=== PATIENT | male | born 1990 | race Caucasian/White ===

== ENCOUNTER 2023-01-30 08:57 | Outpatient (OUT) | payer OTHER, SELFPAY ==
--- NOTE | 2023-01-30 09:10 | US_ITS ---
The [place] [id number] Patient Name: ALLISON GA MRN: [id number] date: 1990 Sex: M Assigned Patient Location: US Current Patient Location: US Accession/Order Number: [id number] Exam Date: 01/30/2023 09:10 Report Date: 01/30/2023 13:52 At the request of: GUME SHEPPARD Procedure: US abdomen limited EXAM: US abdomen limited 01/30/2023 10:49 AM PDT, [id number] HISTORY: LEFT UPPER QUADRANT LUMP/PAIN. TECHNIQUE: Multiple longitudinal and transverse grayscale and color sonographic images of the left upper quadrant were acquired. COMPARISON: CT abdomen/pelvis 04/30/2021. FINDINGS: Targeted evaluation of the palpable lump demonstrates an ovoid, parallel, circumscribed mass in the subcutaneous fat of the left upper quadrant which is of similar echogenicity to the surrounding fat and measures 2.5 x 0.8 x 1.2 cm. No fluid collection. The left kidney measures 11 x 5.6 x 5.7 cm for a volume of 184 mL. No hydronephrosis, solid mass, or echogenic stones on the provided views. Renal vascularity is within normal limits. The spleen is within normal limits for size at 9.8 cm. 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 Electronically authenticated by: LITTLE MAYERS Date: 01/30/2023 13:52
[2023-01-30 10:31] LABS: Uric Acid 5.9 mg/dL (3.5-7.2)
[2023-01-30 10:32] LABS: C Reactive Protein <0.2 mg/dL (<=1.0)
[2023-01-31 09:07] LABS: Antistreptolysin O Ab 34.8 IU/mL (0.0-200.0); Rheumatoid Factor (RF) <10.0 IU/mL (<14.0)
== END 2023-01-30 08:58 | disposition home or self-care (01) ==
LOC: US 08:57
PROVIDERS: PCP Family Medicine; Visit Provider Nurse Practitioner Family
DX: R10.12 Left upper quadrant pain (principal); Z87.898 Personal history of other specified conditions
CPT/HCPCS: 36415; 76705; 84550; 86038; 86060; 86140; 86430; 86431

== ENCOUNTER 2023-10-26 11:15 | Outpatient (OUT) | payer OTHER, SELFPAY ==
--- NOTE | 2023-10-26 11:30 | XR_ITS ---
The [address] [address] Patient Name: ALLISON GA MRN: [facility]:[id number] date: 1990 Sex: M Assigned Patient Location: LAB Current Patient Location: Accession/Order Number: [id number] Exam Date: 10/26/2023 11:35 Report Date: 10/27/2023 06:27 At the request of: CASIE GARBER Procedure: XR thoracic spine 3V EXAMINATION: XR thoracic spine 3V HISTORY: Chest wall pain R07.89 COMPARISON: No relevant comparison available. FINDINGS: BONES: No significant spondylosis, scoliosis, fracture, or visible bony lesion. DISC SPACES: No significant disc height narrowing, subluxation, or endplate abnormality. PARASPINOUS: Negative. No paraspinous abnormality is seen. OTHER: Negative. XR/XR thoracic spine 3V IMPRESSION: 1. Normal examination. Electronically authenticated by: ALLEGRA BAINS Date: 10/27/2023 06:27
--- NOTE | 2023-10-26 11:31 | XR_ITS ---
The [address] [address] Patient Name: ALLISON GA MRN: [id number] date: 1990 Sex: M Assigned Patient Location: LAB Current Patient Location: Accession/Order Number: [id number] Exam Date: 10/26/2023 11:35 Report Date: 10/27/2023 06:26 At the request of: CASIE GARBER Procedure: XR chest 2V EXAMINATION: XR chest 2V HISTORY: Chest wall pain R07.89 COMPARISON: No relevant comparison available. FINDINGS: LUNGS: No significant pulmonary parenchymal abnormalities. VASCULATURE: No increased pulmonary vasculature. PLEURA: No pneumothorax, effusion, or pleural thickening. CARDIAC: No cardiomegaly or cardiac silhouette abnormality. MEDIASTINUM: No visible mass or adenopathy. BONES: No fracture or visible bone lesion. OTHER: Negative. XR/XR chest 2V IMPRESSION: 1. Normal examination. Electronically authenticated by: ALLEGRA BAINS Date: 10/27/2023 06:26
[2023-10-26 11:36] LABS: Basophils Percent Auto 0.6 % (0.2-2.0); Eosinophils Absolute Auto 0.1 10^3/uL (0.0-0.7); Eosinophils Percent Auto 0.7 % (0.9-7.0); Hematocrit 41.9 % (42.0-54.0); Immature Granulocytes Abs Auto 0.02 10^3/uL (0.00-0.03); Immature Granulocytes Pct Auto 0.3 % (0.0-0.5); Lymphocytes Absolute Auto 1.4 10^3/uL (1.2-3.8); Mean Corpuscular HGB Conc 33.4 g/dL (29.9-35.2); Mean Corpuscular Volume 86.9 fL (80.0-94.0); Mean Platelet Volume 10.3 fL (9.5-13.5); Monocytes Absolute Auto 0.7 10^3/uL (0.3-0.8); Monocytes Percent Auto 9.5 % (1.7-12.0); Neutrophils Percent Auto 68.9 % (43.0-75.0); Platelet Count 259 10^3/uL (150-450); Red Blood Count 4.82 10^6/uL (4.70-6.10); Red Cell Distribution Width 13.2 % (11.0-15.0); White Blood Count 7.2 10^3/uL (4.0-11.0)
[2023-10-26 12:36] LABS: Estimated Average Glucose 111 mg/dL; Glycohemoglobin A1C 5.5 % (4.5-6.2)
[2023-10-26 12:54] LABS: Alanine Aminotransferase 35 U/L (16-63); Albumin Globulin Ratio 1.2; Albumin Level 3.8 g/dL (3.4-5.0); Alkaline Phosphatase 71 U/L (46-116); Anion Gap 13.4; Aspartate Amino Transferase 26 U/L (15-37); Bilirubin Total 0.5 mg/dL (0.2-1.0); Carbon Dioxide 25.6 mmol/L (21.0-32.0); Chloride 105 mmol/L (98-107); Cholesterol 229 mg/dL (<=200); Estimated GFR (African America >60 (>=60); Estimated GFR (Non-African Ame >60 (>=60); Free T3 3.11 pg/mL (2.18-3.98); Globulin 3.2 g/dL; Glucose 110 mg/dL (74-106); HDL Cholesterol 57 mg/dL (40-60); Sodium 140 mmol/L (136-145); Triglycerides 76 mg/dL (<=150); VLDL CHOLESTEROL 15.2 mg/dL
[2023-10-26 12:58] LABS: Prostate Specific Antigen Scrn 1.62 ng/mL (<=4.00)
[2023-10-27 04:07] LABS: Insulin 10.2 uIU/mL (2.6-24.9)
== END 2023-10-26 11:16 | disposition home or self-care (01) ==
PROVIDERS: PCP Family Medicine; Visit Provider Family Medicine
DX: Z00.00 Encounter for general adult medical examination without abnormal findings (principal); R07.89 Other chest pain
CPT/HCPCS: 36415; 71046; 72072; 80053; 80061; 83036; 83525; 84436; 84443; 84481; 85025; G0103